=== PATIENT | male | born 1975 | race Caucasian/White ===

== ENCOUNTER 2021-08-14 10:38 | Inpatient (IN) | payer BC ==
[~2021-08-14] VITALS: Ht 172.7 cm; Wt 100.7 kg
[~2021-08-14 10:38] MED LIST: SODIUM CHLORIDE FLUSH 10 ML SYR IV PRN
[2021-08-14] MEDS ORDERED: ONDANSETRON HCL INJ 2MG/ML 2ML 2 MG/ML VIAL IV STA ×2 (11:11→11:15)
[2021-08-14] MEDS ORDERED: Morphine 4mg INJECTION 4 MG/ML INJ IV ONE (11:15)
[2021-08-14] MEDS ORDERED: SODIUM CHLORIDE 0.9% 1000ML 1,000 ML IV SCH (11:15)
[2021-08-14] MEDS ORDERED: SODIUM CHLORIDE 0.9% 1000ML 1,000 ML IV ONE (11:15)
[2021-08-14 11:58] LABS: BASOPHILS # (AUTO) 0.1 (0.0-0.1); BASOPHILS % 1.1 % (0.0-1.0); EOSINOPHILS # (AUTO) 0.1 (0.0-0.4); EOSINOPHILS % 0.5 % (0.0-6.0); HEMATOCRIT 32.5 % (38.2-49.6); LYMPHOCYTES # (AUTO) 0.9 (1.0-3.2); LYMPHOCYTES % 9.3 % (18.0-39.1); MEAN CORPUSCULAR HEMOGLOBIN 22.3 pg (28-32); MEAN CORPUSCULAR HGB CONC 27.7 g/dL (31-35); MEAN CORPUSCULAR VOLUME 80.6 fL (81-99); MONOCYTES # (AUTO) 0.5 (0.2-0.8); MONOCYTES % 5.3 % (4.4-11.3); NEUTROPHILS # (AUTO) 8.2 (2.1-6.9); NEUTROPHILS % 83.3 % (38.7-80.0); PLATELET COUNT 394 x10e3/uL (140-360); RED BLOOD COUNT 4.03 x10e6/uL (4.3-5.7); RED CELL DISTRIBUTION WIDTH 21.5 % (11.7-14.4)
[2021-08-14 12:17] LABS: INR 1.01; PROTHROMBIN TIME 14.2 seconds (11.9-14.5)
[2021-08-14 12:18] LABS: PARTIAL THROMBOPLASTIN TIME 27.5 seconds (23.8-35.5)
[2021-08-14 12:25] LABS: ALANINE AMINOTRANSFERASE 55 IU/L (0-55); ALBUMIN/GLOBULIN RATIO 0.6 (0.8-2.0); ALKALINE PHOSPHATASE 595 IU/L (40-150); ANION GAP 18.8 mmol/L (8-16); BLOOD UREA NITROGEN < 5 mg/dL (7-26); BUN/CREATININE RATIO 6 (6-25); CALCIUM 9.1 mg/dL (8.4-10.2); CARBON DIOXIDE 32 mmol/L (22-29); CHLORIDE 95 mmol/L (98-107); GLUCOSE 350 mg/dL (74-118); SODIUM 143 mmol/L (136-145)
[2021-08-14 12:27] LABS: POTASSIUM 2.8 mmol/L (3.5-5.1)
[2021-08-14] MEDS ORDERED: IOPAMIDOL 370 MG/ML 100 ML INFUS..BTL INJ ONE ×2 (12:47→15:11)
[2021-08-14] MEDS ORDERED: HYDROMORPHONE 1MG/1ML INJ IV STA (12:54)
[2021-08-14] MEDS ORDERED: POVIDONE IODINE 0.05% 0.05 % ML PO ONE (12:57)
[2021-08-14] MEDS ORDERED: LIDOCAINE HCL 2% LOCAL INJ 5 ML SDV VIAL INJ ONE (12:57)
[2021-08-14] MEDS ORDERED: PROPOFOL IV EMULSION 10 MG/ML 20 ML VIAL ONE (12:57)
[2021-08-14 13:12] LABS: PLATELET ESTIMATE ADEQUATE; PLATELET MORPHOLOGY COMMENT NORMAL
[2021-08-14 13:13] LABS: ANISOCYTOSIS SLIGHT; POIKILOCYTOSIS SLIGHT; RBC MORPHOLOGY COMMENT NORMAL
[2021-08-14 13:56] LABS: PHENCYCLIDINE SCREEN,URINE NEGATIVE (NEGATIVE)
[2021-08-14 13:57] LABS: AMPHETAMINES SCREEN,URINE NEGATIVE (NEGATIVE); BENZODIAZEPINES SCREEN,URINE NEGATIVE (NEGATIVE); CLARITY,URINE CLEAR (CLEAR); COLOR,URINE YELLOW (YELLOW)
[2021-08-14 13:58] LABS: KETONES,URINE NEGATIVE (NEGATIVE); LEUKOCYTE ESTERASE ,URINE NEGATIVE (NEGATIVE); NITRITE,URINE NEGATIVE (NEGATIVE); PROTEIN,URINE DIPSTICK 1+ (NEGATIVE); URINE UROBILINOGEN 0.2 mg/dL (0.2 - 1)
[2021-08-14 14:03] LABS: BACTERIA,URINE FEW /HPF; EPITHELIAL CELLS,URINE FEW /LPF; RBC,URINE 0-5 /HPF (0-5); WBC,URINE (MAN) 0-5 /HPF (0-5)
[2021-08-14] MEDS ORDERED: POTASSIUM CHLORIDE 20 MEQ TAB CR PO STA (14:39)
[2021-08-14] MEDS: SODIUM CHLORIDE 0.9% 1000ML 1,000 ML IV SCH ×2 (15:15→17:45)
[2021-08-14] MEDS ORDERED: DEXTROSE 50% SYRINGE 50 ML IV PRN (15:15)
[2021-08-14] MEDS ORDERED: LORAZEPAM INJ 2 MG/ML VIAL IV ONE (15:15)
[2021-08-14 17:58] VITALS: BP 159/89
[2021-08-14 20:00] VITALS: BP 166/83
[2021-08-14 20:17] VITALS: BP 166/83
[2021-08-14] MEDS: HYDROMORPHONE 1MG/1ML INJ IV PRN (21:10)
[2021-08-14] MEDS ORDERED: GADOBENATE DIMEGLUMINE 1 ML IV ONE (23:50)
[2021-08-15] VITALS (8 sets, daily range): BP systolic 128–169; BP diastolic 85–107
[2021-08-15] MEDS: HYDROMORPHONE 1MG/1ML INJ IV PRN ×4 (02:38→22:07)
[2021-08-15] MEDS: ONDANSETRON HCL INJ 2MG/ML 2ML 2 MG/ML VIAL IV PRN ×2 (02:54→22:07)
[2021-08-15] MEDS ORDERED: OMEPRAZOLE40 MG PO (03:03)
[2021-08-15] MEDS ORDERED: LISINOPRIL10 MG PO (03:03)
[2021-08-15] MEDS ORDERED: ATORVASTATIN CA20 MG PO (03:03)
[2021-08-15] MEDS ORDERED: METOPROLOL SUCC50 MG PO (03:03)
[2021-08-15] MEDS ORDERED: LANTUS 3ML100 UNITS/ (03:03)
[2021-08-15] MEDS ORDERED: CLOPIDOGREL75 MG PO (03:03)
[2021-08-15] MEDS ORDERED: FUROSEMIDE40 MG PO (03:03)
[2021-08-15] MEDS ORDERED: HUMALOG MI100 UNIT/2 SQ (03:03)
[2021-08-15] MEDS ORDERED: ASPIRIN CHEW81 MG PO (03:03)
[2021-08-15] MEDS ORDERED: AMITRIPTYLINE H25 MG PO (03:03)
[2021-08-15] MEDS ORDERED: AMLODIPINE BESY10 MG PO (03:03)
[2021-08-15 03:19] LABS: % IRON SATURATION 12 % (15-50); IRON 61 ug/dL (65-175); TOTAL IRON BINDING CAPACITY 517 ug/dL (261-478); TRANSFERRIN 369 mg/dL (174-364)
[2021-08-15] MEDS: SODIUM CHLORIDE 0.9% 1000ML 1,000 ML IV SCH ×3 (03:25→22:07)
[2021-08-15 06:18] LABS: BASOPHILS # (AUTO) 0.1 (0.0-0.1); BASOPHILS % 0.9 % (0.0-1.0); EOSINOPHILS # (AUTO) 0.2 (0.0-0.4); EOSINOPHILS % 1.8 % (0.0-6.0); HEMATOCRIT 30.7 % (38.2-49.6); HEMOGLOBIN 8.2 g/dL (14.0-18.0); LYMPHOCYTES # (AUTO) 0.9 (1.0-3.2); LYMPHOCYTES % 9.5 % (18.0-39.1); MEAN CORPUSCULAR HEMOGLOBIN 22.2 pg (28-32); MEAN CORPUSCULAR HGB CONC 26.7 g/dL (31-35); MEAN CORPUSCULAR VOLUME 83.2 fL (81-99); MONOCYTES # (AUTO) 0.6 (0.2-0.8); MONOCYTES % 5.7 % (4.4-11.3); NEUTROPHILS # (AUTO) 7.7 (2.1-6.9); NEUTROPHILS % 80.8 % (38.7-80.0); PLATELET COUNT 341 x10e3/uL (140-360); RED BLOOD COUNT 3.69 x10e6/uL (4.3-5.7); RED CELL DISTRIBUTION WIDTH 21.5 % (11.7-14.4)
[2021-08-15 07:22] LABS: ALANINE AMINOTRANSFERASE 103 IU/L (0-55); ALBUMIN 2.7 g/dL (3.5-5.0); ALBUMIN/GLOBULIN RATIO 0.6 (0.8-2.0); ALKALINE PHOSPHATASE 767 IU/L (40-150); ANION GAP 18.1 mmol/L (8-16); BLOOD UREA NITROGEN < 5 mg/dL (7-26); CALCIUM 7.9 mg/dL (8.4-10.2); CARBON DIOXIDE 31 mmol/L (22-29); CHLORIDE 99 mmol/L (98-107); GLUCOSE 330 mg/dL (74-118); POTASSIUM 3.1 mmol/L (3.5-5.1); SODIUM 145 mmol/L (136-145)
[2021-08-15 07:24] LABS: BUN/CREATININE RATIO 6 (6-25)
[2021-08-15 07:45] LABS: ANISOCYTOSIS MARKED; HYPOCHROMASIA MODERATE; PLATELET ESTIMATE ADEQUATE; PLATELET MORPHOLOGY COMMENT NORMAL; POLYCHROMASIA FEW; RBC MORPHOLOGY COMMENT ABNORMAL
[2021-08-15] MEDS ORDERED: LORAZEPAM INJ 2 MG/ML VIAL IV ONE ×2 (10:30→14:30)
[2021-08-15] MEDS ORDERED: GLUCAGON FOR INJ 1 MG VIAL ONE (11:38)
[2021-08-15] MEDS ORDERED: MIDAZOLAM HCL 2 MG/2 ML VIAL ONE (13:13)
[2021-08-15] MEDS ORDERED: FENTANYL CITRATE/PF 100MCG/2 ML INJ ONE (13:13)
[2021-08-15] MEDS: IRON SUCROSE 100 MG in SODIUM CHLORIDE 0.9% 100 ML 100 ML IV SCH (22:06)
[2021-08-16] VITALS (8 sets, daily range): BP systolic 142–171; BP diastolic 78–94
[2021-08-16] MEDS: HYDROMORPHONE 1MG/1ML INJ IV PRN ×4 (05:05→20:41)
[2021-08-16] MEDS: ONDANSETRON HCL INJ 2MG/ML 2ML 2 MG/ML VIAL IV PRN ×2 (05:05→20:41)
[2021-08-16] MEDS: SODIUM CHLORIDE 0.9% 1000ML 1,000 ML IV SCH ×2 (07:47→15:30)
[2021-08-16] MEDS ORDERED: DEXTROSE 50% SYRINGE 50 ML IV PRN (12:15)
[2021-08-16] MEDS: IRON SUCROSE 100 MG in SODIUM CHLORIDE 0.9% 100 ML 100 ML IV SCH (14:00)
[2021-08-16] MEDS ORDERED: SODIUM CHLORIDE 0.9% 250ML 250 ML ONE (15:16)
[2021-08-16] MEDS: INSULIN REGULAR, HUMAN 100 UNIT/1 ML SQ SCH ×2 (16:30→21:30)
[2021-08-16] MEDS: ASPIRIN 81 MG CHEW TAB PO SCH (20:41)
[2021-08-16] MEDS: ATORVASTATIN 40 MG TAB PO SCH (20:41)
[2021-08-16] MEDS ORDERED: AMLODIPINE BESYLATE 10 MG TAB PO SCH (21:00)
[2021-08-17] VITALS (8 sets, daily range): BP systolic 143–156; BP diastolic 77–89
[2021-08-17] MEDS: HYDROMORPHONE 1MG/1ML INJ IV PRN ×7 (00:45→23:45)
[2021-08-17] MEDS: SODIUM CHLORIDE 0.9% 1000ML 1,000 ML IV SCH ×3 (01:00→13:01)
[2021-08-17 06:34] LABS: BASOPHILS # (AUTO) 0.1 (0.0-0.1); BASOPHILS % 0.8 % (0.0-1.0); EOSINOPHILS # (AUTO) 0.4 (0.0-0.4); EOSINOPHILS % 3.2 % (0.0-6.0); HEMATOCRIT 30.2 % (38.2-49.6); LYMPHOCYTES # (AUTO) 1.1 (1.0-3.2); LYMPHOCYTES % 10.3 % (18.0-39.1); MEAN CORPUSCULAR HEMOGLOBIN 22.5 pg (28-32); MEAN CORPUSCULAR HGB CONC 26.5 g/dL (31-35); MEAN CORPUSCULAR VOLUME 84.8 fL (81-99); MONOCYTES # (AUTO) 0.4 (0.2-0.8); MONOCYTES % 3.8 % (4.4-11.3); NEUTROPHILS # (AUTO) 8.9 (2.1-6.9); PLATELET COUNT 289 x10e3/uL (140-360); RED BLOOD COUNT 3.56 x10e6/uL (4.3-5.7); RED CELL DISTRIBUTION WIDTH 22.4 % (11.7-14.4)
[2021-08-17 06:52] LABS: ALANINE AMINOTRANSFERASE 79 IU/L (0-55); ALBUMIN 2.5 g/dL (3.5-5.0); ALBUMIN/GLOBULIN RATIO 0.6 (0.8-2.0); ALKALINE PHOSPHATASE 634 IU/L (40-150); ANION GAP 14.9 mmol/L (8-16); BLOOD UREA NITROGEN < 5 mg/dL (7-26); CALCIUM 7.8 mg/dL (8.4-10.2); CARBON DIOXIDE 31 mmol/L (22-29); CHLORIDE 98 mmol/L (98-107); CREATININE, SERUM 0.76 mg/dL (0.72-1.25); GLUCOSE 290 mg/dL (74-118); LIPASE 61 U/L (8-78); SODIUM 141 mmol/L (136-145)
[2021-08-17] MEDS: INSULIN REGULAR, HUMAN 100 UNIT/1 ML SQ SCH ×4 (07:30→20:30)
[2021-08-17 07:38] LABS: BUN/CREATININE RATIO 7 (6-25); POTASSIUM 2.9 mmol/L (3.5-5.1)
[2021-08-17] MEDS: METOPROLOL SUCCINATE 50 MG TAB XL PO SCH (09:00)
[2021-08-17] MEDS: AMITRIPTYLINE HCL 25 MG TAB PO SCH (09:00)
[2021-08-17] MEDS: LISINOPRIL 20 MG TAB PO SCH (09:00)
[2021-08-17] MEDS: CLOPIDOGREL BISULFATE 75 MG TAB PO SCH (09:00)
[2021-08-17] MEDS: FUROSEMIDE 40 MG TAB PO SCH (09:00)
[2021-08-17 09:04] LABS: EOSINOPHILS % (MANUAL) 3 % (0-7); LYMPHOCYTES % (MANUAL) 13 % (19-48); MONOCYTES % (MANUAL) 2 % (3.4-9.0); NEUTROPHILS % (MANUAL) 81 % (40-74); NUCLEATED RED BLOOD CELLS 1
[2021-08-17 09:05] LABS: PLATELET ESTIMATE ADEQUATE; PLATELET MORPHOLOGY COMMENT NORMAL
[2021-08-17 09:07] LABS: RBC MORPHOLOGY COMMENT NORMAL
[2021-08-17 09:08] LABS: MICROCYTOSIS SLIGHT; POLYCHROMASIA FEW
[2021-08-17 09:20] LABS: INR 0.95; PARTIAL THROMBOPLASTIN TIME 29.9 seconds (23.8-35.5); PROTHROMBIN TIME 13.5 seconds (11.9-14.5)
[2021-08-17] MEDS ORDERED: POTASSIUM CHLORIDE 20 MEQ TAB CR PO ONE (09:30)
[2021-08-17] MEDS: NIFEDIPINE CR 30 MG TAB PO SCH ×2 (11:45→20:30)
[2021-08-17] MEDS: IRON SUCROSE 100 MG in SODIUM CHLORIDE 0.9% 100 ML 100 ML IV SCH (14:00)
[2021-08-17] MEDS ORDERED: ALPRAZOLAM 0.25 MG TAB PO PRN (14:45)
[2021-08-17] MEDS ORDERED: MIDAZOLAM HCL 2 MG/2 ML VIAL ONE (14:54)
[2021-08-17] MEDS ORDERED: FENTANYL CITRATE/PF 100MCG/2 ML INJ ONE (14:55)
[2021-08-17] MEDS: ATORVASTATIN 40 MG TAB PO SCH (20:30)
[2021-08-17] MEDS: ASPIRIN 81 MG CHEW TAB PO SCH (20:30)
[2021-08-18] MEDS ORDERED: CYANOCOBALAMIN INJ 1,000 MCG/ML VIAL IM ONE (01:45)
[2021-08-18 01:49] VITALS: BP 152/84
[2021-08-18] MEDS ORDERED: TRAMADOL HCL 50 MG TAB PO PRN (02:45)
[2021-08-18] MEDS: HYDROMORPHONE 1MG/1ML INJ IV PRN ×3 (02:55→09:28)
[2021-08-18 05:43] VITALS: BP 152/84
[2021-08-18 06:01] VITALS: BP 146/89
[2021-08-18] MEDS: SODIUM CHLORIDE 0.9% 1000ML 1,000 ML IV SCH (06:14)
[2021-08-18] MEDS: INSULIN REGULAR, HUMAN 100 UNIT/1 ML SQ SCH (08:29)
[2021-08-18] MEDS: CLOPIDOGREL BISULFATE 75 MG TAB PO SCH (08:34)
[2021-08-18] MEDS: AMITRIPTYLINE HCL 25 MG TAB PO SCH (08:34)
[2021-08-18] MEDS: METOPROLOL SUCCINATE 50 MG TAB XL PO SCH (08:35)
[2021-08-18] MEDS: NIFEDIPINE CR 30 MG TAB PO SCH (08:35)
[2021-08-18] MEDS: LISINOPRIL 20 MG TAB PO SCH (08:35)
[2021-08-18] MEDS: FUROSEMIDE 40 MG TAB PO SCH (08:37)
[2021-08-18 09:00] VITALS: BP 144/70
[2021-08-18] MEDS ORDERED: CYANOCOBALAMIN INJ 1,000 MCG/ML VIAL IM SCH (09:00)
[2021-08-18 09:08] VITALS: BP 144/70
[2021-08-18] MEDS ORDERED: NIFEDIPINE ER30 M1 PO (09:53)
[2021-08-18] MEDS ORDERED: FERROUS SULFAT325 MG PO (09:53)
[2021-08-18] MEDS ORDERED: PANTOPRAZOLE SO40 MG PO (09:53)
[2021-08-18] MEDS ORDERED: VITAMIN B-121000 MCG PO (09:53)
== END 2021-08-18 12:40 | disposition home or self-care (01) | DRG 438 ==
LOC: ER 11:00 → ERHOLD 15:24 → MED/SURG2 17:12
PROVIDERS: ADMIT Internal Medicine; ATTEND Internal Medicine
PROC: 0DB78ZX Excision of Stomach, Pylorus, Via Natural or Artificial Opening Endoscopic, Diagnostic (ICD-10-PCS; 2021-08-15)
PROC: 0DB98ZX Excision of Duodenum, Via Natural or Artificial Opening Endoscopic, Diagnostic (ICD-10-PCS; principal; 2021-08-15 17:29)
PROC: 0FBG3ZX Excision of Pancreas, Percutaneous Approach, Diagnostic (ICD-10-PCS; 2021-08-17)
DX: K86.3 Pseudocyst of pancreas (principal); K85.90 Acute pancreatitis without necrosis or infection, unspecified; F17.200 Nicotine dependence, unspecified, uncomplicated; E78.5 Hyperlipidemia, unspecified; F10.20 Alcohol dependence, uncomplicated; K43.9 Ventral hernia without obstruction or gangrene; E80.6 Other disorders of bilirubin metabolism; E87.6 Hypokalemia; Z90.49 Acquired absence of other specified parts of digestive tract; K21.9 Gastro-esophageal reflux disease without esophagitis; I25.10 Atherosclerotic heart disease of native coronary artery without angina pectoris; R59.9 Enlarged lymph nodes, unspecified; D50.9 Iron deficiency anemia, unspecified; Z20.822 Contact with and (suspected) exposure to COVID-19; I25.2 Old myocardial infarction; K29.80 Duodenitis without bleeding; E11.65 Type 2 diabetes mellitus with hyperglycemia; G47.33 Obstructive sleep apnea (adult) (pediatric)
CPT/HCPCS: 36415; 43239; 48102; 71045; 71260; 74177; 74183; 74470; 77012; 80053; 80307; 81001; 82607; 82746; 82948; 83540; 83690; 84132; 84466; 84484; 85025; 85045; 85379; 85610; 85730; 86301; 88304; 88305; 88312; 88342; 93005; 94660; 94799; 96361; 99284; J1170; J1610; J1756; J1817; J2001; J2060; J2250; J2270; J2405; J2543; J3010; J3420; J7030; J7050; Q9967